=== PATIENT | female | born 2000 | race Caucasian/White ===

== ENCOUNTER 2024-02-26 11:15 | Emergency (ER) | payer BC, SELFPAY ==
[2024-02-26 11:43] VITALS: BP 168/72; PULSE 65; RESP 16; TEMP 37.1; O2SAT 100; BMI 28.8
--- NOTE | 2024-02-26 11:47 | DI.RAD.S_ITS ---
PROCEDURE: XR FOOT RT MIN 3V INDICATIONS: fall TECHNIQUE: 3 views of the foot were acquired. COMPARISON: [facility], CR, XR ANKLE RT MIN 3V, 02/26/2024, 12:00. FINDINGS: Bones: Anterior calcaneal compression. Soft tissues: No tibiotalar joint effusion. Achilles tendon appears normal. IMPRESSION: Anterior calcaneal compression highly suggestive of fracture. Dictated by: Gloria Keating M.D. on 02/26/2024 at 12:45 Approved by: Gloria Keating M.D. on 02/26/2024 at 12:46
--- NOTE | 2024-02-26 11:47 | DI.RAD.S_ITS ---
PROCEDURE: XR ELBOW RT MIN 3V INDICATIONS: fall TECHNIQUE: 3 views of the elbow were acquired. COMPARISON: None. FINDINGS: Bones: No fractures or dislocations. No suspicious bony lesions. Soft tissues: Mild elbow joint effusion. No suspicious soft tissue calcifications. IMPRESSION: No visualized acute fracture or dislocation. However, if clinical concern and/or pain persist, short interval imaging followup in 7-10 days is recommended, as occult injury cannot be definitively excluded. Dictated by: Gloria Keating M.D. on 02/26/2024 at 12:48 Approved by: Gloria Keating M.D. on 02/26/2024 at 12:53
--- NOTE | 2024-02-26 11:47 | DI.RAD.S_ITS ---
PROCEDURE: XR KNEE RT 3V INDICATIONS: fall TECHNIQUE: 3 views of the knee were acquired. COMPARISON: None. FINDINGS: Bones: No fractures or dislocations. No suspicious bony lesions. Soft tissues: No joint effusion. No suspicious soft tissue calcifications. IMPRESSION: No visualized acute fracture or dislocation. However, if clinical concern and/or pain persist, short interval imaging followup in 7-10 days is recommended, as occult injury cannot be definitively excluded. Dictated by: Gloria Keating M.D. on 02/26/2024 at 12:46 Approved by: Gloria Keating M.D. on 02/26/2024 at 12:46
--- NOTE | 2024-02-26 11:47 | DI.RAD.S_ITS ---
PROCEDURE: XR ANKLE RT MIN 3V INDICATIONS: fall TECHNIQUE: 3 views of the ankle were acquired. COMPARISON: [facility], , XR FOOT RT MIN 3V, 02/26/2024, 12:00. FINDINGS: Bones: Anterior calcaneus demonstrates appearance of compression.. Ankle mortise is normally aligned. No suspicious bony lesions. Soft tissues: No tibiotalar joint effusion. Achilles tendon appears normal. IMPRESSION: Anterior calcaneal compression highly suggestive of fracture. Dictated by: Gloria Keating M.D. on 02/26/2024 at 12:44 Approved by: Gloria Keating M.D. on 02/26/2024 at 12:45
--- NOTE | 2024-02-26 11:47 | DI.RAD.S_ITS ---
PROCEDURE: XR WRIST RT MIN 3V INDICATIONS: fall TECHNIQUE: 4 views of the wrist were acquired. COMPARISON: None. FINDINGS: Bones: No fractures or dislocations. No suspicious bony lesions. Soft tissues: No suspicious soft tissue calcifications. IMPRESSION: No visualized acute fracture or dislocation. However, if clinical concern and/or pain persist, short interval imaging followup in 7-10 days is recommended, as occult injury cannot be definitively excluded. Dictated by: Gloria Keating M.D. on 02/26/2024 at 12:46 Approved by: Gloria Keating M.D. on 02/26/2024 at 12:48
--- NOTE | 2024-02-26 12:26 | ED.FALL ---
HPI - Fall General Chief Complaint: Fall Stated Complaint: fall, knee/arm/ head injury r side Time Seen by Provider: 02/26/24 12:25 Source: patient Mode of arrival: Ambulatory History of Present Illness HPI Narrative: Patient brought here by friend. Complaints of head pain, right elbow right knee right ankle right great toe pain. [place] and [place] her balance and fell back into the right. Did hit her head. No loss of consciousness but she felt nauseous and dizzy and clammy after the injury. She did stay awake. She has history of Marfan's. Denies does not want a test. Right shoulder 2 fingers exposed. Left knee to toes exposed. There is no midline tenderness or step-off of the cervicothoracic spine or lumbar spine. Patient was able to walk herself ambulate from waiting room to her room in fast track Related Data Allergies Allergy/AdvReac Type Severity Reaction Status Date / Time diphenhydramine Allergy Anaphylaxis Verified 02/26/24 11:43 [From Benadryl] morphine AdvReac Vomiting Verified 02/26/24 11:43 Review of Systems Review of Systems Narrative: GENERAL: negative chills, fatigue, malaise, fever, positive sweats. HEENT: negative sinus pain, ear pain, sore throat RESPIRATORY: negative dyspnea, cough CARDIOVASCULAR: negative chest pain, palpitations GASTROINTESTINAL: Positive nausea, negative vomiting, abdominal pain : negative dysuria, frequency, hematuria MUSCULOSKELETAL: Positive muscle or bony pain SKIN: negative rash, skin lesions NEUROLOGIC: negative weakness, numbness, negative headache Patient History Social History Smoking Status: Never smoker Smoking Status: Never smoker Substance Use Type: does not use Exam Narrative Exam Narrative: GENERAL: in no distress, not toxic not dyspneic HEAD: Normocephalic. Mild tenderness to the mid occiput of the scalp. No crepitus or step-off. EYES: Pupils equal round EOMI ENT: Mucous membranes moist. NECK: Trachea midline. No midline tenderness or step-off of the cervical spine CARDIOVASCULAR: Regular rate and rhythm RESPIRATORY: Clear to auscultation. Breath sounds equal bilaterally. No wheezes, rales, or rhonchi. GASTROINTESTINAL: Abdomen soft, non-tender EXTREMITIES: No gross deformities. Examination right upper extremity. Shoulder 2 fingers exposed. Nontender shoulder and wrist. Able to raise hand above her head without any shoulder pain. Full flexion-extension of the wrist without difficulty, no gross deformity. Hand is warm soft and pink. 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 Light touch intact to fingers and thumb. Elbow is diffusely tender at the antecubital fossa as well as olecranon. No gross deformity. Patient able to nearly fully extend. Prefers to keep it flexed at the elbow. Able to supinate at the forearm but limited pronation. Examination of the right hip nontender. Examination of the right knee there is anterior diffuse edema/slight bruising more at medial aspect. Able to stand and bear weight. However slight antalgic gait but no foot drop. No pain or laxity of the right knee with anterior posterior medial lateral and rotational stress of the right leg. Examination of the right foot and ankle, nontender ankle. Able to flex and extend without difficulty. No gross deformity. There is mild tenderness to the 1st toe but no gross deformity. Tender at the 1st MTP joint. Foot is warm soft and pink with strong pedal pulse and light touch intact to foot and toes. Left upper extremity and left lower extremity nontender. BACK: No flank tenderness. NEURO: AOx4. SKIN: Warm and dry PSYCH: Not anxious, is cooperative Initial Vital Signs Initial Vital Signs: Vital Signs Temperature 98.7 F 02/26/24 11:43 Pulse Rate 65 02/26/24 11:43 Respiratory Rate 16 02/26/24 11:43 Blood Pressure 168/72 H 02/26/24 11:43 Pulse Oximetry 100 02/26/24 11:43 Oxygen Delivery Method Room Air 02/26/24 11:43 Procedures Orthopedic Splinting/Casting Injury #1: Time of procedure: 13:54 Side: right Lower Extremity Injury Location: foot Lower Extremity Immobilizer: boot orthosis (Walking boot) Post splinting neuro exam: no change Post splinting vascular exam: no change Placed by: Nursing Course Orders Ordered: ED Orders 02/26/24 11:47 XR ankle RT min 3V Stat XR elbow RT min 3V Stat XR foot RT min 3V Stat XR knee RT 3V Stat XR wrist RT min 3V Stat 02/26/24 12:25 CT head/brain wo con Stat Discontinued Medications Ibuprofen (Ibuprofen 400 Mg Tablet) 800 mg PO NOW ONE Stop: 02/26/24 12:29 Last Admin: 02/26/24 13:03 Dose: 800 mg Documented By: PRIYA Vital Signs Vital signs: Vital Signs - 8 hr 02/26/24 11:43 02/26/24 14:04 Temperature 98.7 F Pulse Rate 65 61 Respiratory Rate 16 16 Blood Pressure 168/72 H 130/61 Pulse Oximetry 100 100 Oxygen Delivery Method Room Air Room Air MDM - Fall Imaging Data CT scan - head: Radiologist's Impression: [address] [address] [address] Scan Report Signed Patient: Jackie Steiner MR#: [id number] : 2000 Acct:[id number] Age/Sex: 23 / F Date of Service: 02/26/24 Loc: ED Accession Number: [id number] Procedure: CT head/brain wo con Ordering Provider: Eladio Sanchez MD PROCEDURE: CT HEAD/BRAIN WO CON INDICATIONS: Fall/injury/posterior head pain TECHNIQUE: Noncontrast 4.5 mm thick angled axial sections acquired from the foramen magnum to the vertex, with coronal and sagittal reformats. For radiation dose reduction, the following was used: automated exposure control, adjustment of mA and/or kV according to patient size. COMPARISON: None. FINDINGS: Image quality: Mild streak artifact can be seen through the skull base. CSF spaces: Basal cisterns are patent. No extra-axial fluid collections. Ventricles are normal in size and shape. Brain: No midline shift. No intracranial masses or hemorrhage. Ladd-white matter interface is normal. Skull and face: Calvarium and visualized facial bones are intact, without suspicious lesions. Sinuses: Visualized sinuses and mastoids are clear. IMPRESSION: No acute intracranial hemorrhage is seen. No acute intracranial pathology. Dictated by: Catracho Bridges M.D. on 02/26/2024 at 12:11 Approved by: Catracho Bridges M.D. on 02/26/2024 at 12:11 Extremity x-ray #1: Radiologist's Impression: [address] [address] XRay Report Signed Patient: Jackie Steiner MR#: [id number] : 2000 Acct:[id number] Age/Sex: 23 / F Date of Service: 02/26/24 Loc: ED Accession Number: [id number] Procedure: XR wrist RT min 3V Ordering Provider: Eladio Sanchez MD PROCEDURE: XR WRIST RT MIN 3V INDICATIONS: fall TECHNIQUE: 4 views of the wrist were acquired. COMPARISON: None. FINDINGS: Bones: No fractures or dislocations. No suspicious bony lesions. Soft tissues: No suspicious soft tissue calcifications. IMPRESSION: No visualized acute fracture or dislocation. However, if clinical concern and/or pain persist, short interval imaging followup in 7-10 days is recommended, as occult injury cannot be definitively excluded. Dictated by: Gloria Keating M.D. on 02/26/2024 at 12:46 Approved by: Gloria Keating M.D. on 02/26/2024 at 12:48 Extremity x-ray #2: Radiologist's Impression: [address] [address] XRay Report Signed Patient: Jackie Steiner MR#: [id number] : 2000 Acct:[id number] Age/Sex: 23 / F Date of Service: 02/26/24 Loc: ED Accession Number: [id number] Procedure: XR knee RT 3V Ordering Provider: Eladio Sanchez MD PROCEDURE: XR KNEE RT 3V INDICATIONS: fall TECHNIQUE: 3 views of the knee were acquired. COMPARISON: None. FINDINGS: Bones: No fractures or dislocations. No suspicious bony lesions. Soft tissues: No joint effusion. No suspicious soft tissue calcifications. IMPRESSION: No visualized acute fracture or dislocation. However, if clinical concern and/or pain persist, short interval imaging followup in 7-10 days is recommended, as occult injury cannot be definitively excluded. Dictated by: Gloria Keating M.D. on 02/26/2024 at 12:46 Approved by: Gloria Keating M.D. on 02/26/2024 at 12:46 Extremity x-ray #3: Radiologist's Impression: [address] [address] XRay Report Signed Patient: Jackie Steiner MR#: [id number] : 2000 Acct:[id number] Age/Sex: 23 / F Date of Service: 06/03/24 Loc: ED Accession Number: [id number] Procedure: XR foot RT min 3V Ordering Provider: Eladio Sanchez MD PROCEDURE: XR FOOT RT MIN 3V INDICATIONS: fall TECHNIQUE: 3 views of the foot were acquired. COMPARISON: [facility], , XR ANKLE RT MIN 3V, 02/26/2024, 12:00. FINDINGS: Bones: Anterior calcaneal compression. Soft tissues: No tibiotalar joint effusion. Achilles tendon appears normal. IMPRESSION: Anterior calcaneal compression highly suggestive of fracture. Dictated by: Gloria Keating M.D. on 02/26/2024 at 12:45 Approved by: Gloria Keating M.D. on 02/26/2024 at 12:46 X-ray elbow: Radiologist's Impression: [address] [address] XRay Report Signed Patient: Jackie Steiner MR#: [id number] : 2000 Acct:[id number] Age/Sex: 23 / F Date of Service: 02/26/24 Loc: ED Accession Number: [id number] Procedure: XR elbow RT min 3V Ordering Provider: Eladio Sanchez MD PROCEDURE: XR ELBOW RT MIN 3V INDICATIONS: fall TECHNIQUE: 3 views of the elbow were acquired. COMPARISON: None. FINDINGS: Bones: No fractures or dislocations. No suspicious bony lesions. Soft tissues: Mild elbow joint effusion. No suspicious soft tissue calcifications. IMPRESSION: No visualized acute fracture or dislocation. However, if clinical concern and/or pain persist, short interval imaging followup in 7-10 days is recommended, as occult injury cannot be definitively excluded. Dictated by: Gloria Keating M.D. on 02/26/2024 at 12:48 Approved by: Gloria Keating M.D. on 02/26/2024 at 12:53 X-ray ankle: Radiologist's Impression: [address] [address] XRay Report Signed Patient: Jackie Steiner MR#: [id number] : 2000 Acct:[id number] Age/Sex: 23 / F Date of Service: 02/26/24 Loc: ED Accession Number: [id number] Procedure: XR ankle RT min 3V Ordering Provider: Eladio Sanchez MD PROCEDURE: XR ANKLE RT MIN 3V INDICATIONS: fall TECHNIQUE: 3 views of the ankle were acquired. COMPARISON: [facility], CR, XR FOOT RT MIN 3V, 02/26/2024, 12:00. FINDINGS: Bones: Anterior calcaneus demonstrates appearance of compression.. Ankle mortise is normally aligned. No suspicious bony lesions. Soft tissues: No tibiotalar joint effusion. Achilles tendon appears normal. IMPRESSION: Anterior calcaneal compression highly suggestive of fracture. Dictated by: Gloria Keating M.D. on 02/26/2024 at 12:44 Approved by: Gloria Keating M.D. on 02/26/2024 at 12:45 [facility] Narrative Medical decision making narrative: Patient brought here by friend. Complaints of head pain, right elbow right knee right ankle right great toe pain. [place] and lost her balance and fell back into the right. Did hit her head. No loss of consciousness but she felt nauseous and dizzy and clammy after the injury. She did stay awake. She has history of Marfan's. Denies does not want a test. Right shoulder 2 fingers exposed. Left knee to toes exposed. There is no midline tenderness or step-off of the cervicothoracic spine or lumbar spine. Patient was able to walk herself ambulate from waiting room to her room in fast track After history and exam CT head x-ray right elbow/knee/ankle/foot/wrist, ice pack, ibuprofen MDM Medical records reviewed: No recent visits for this complaint Differential considered: Includes but not limited to concussion head please call fracture elbow/knee/wrist/foot/ankle/toe-fracture strain sprain contusion Lab Test results independently reviewed as above. Pertinent findings: None indicated Imaging studies independently reviewed: CT head x-ray right elbow wrist knee no acute ankle and foot anterior calcaneal compression highly suggestive of fracture Consultations: Referral for Orthopedics provided, 1:53 p.m.. I did speak with Dr. Wright, orthopedics. I did squeeze on the heel/calcaneus. There is no tenderness. It would be appropriate to place patient in a walking boot and follow up in the office. No CT indicated at this time. Treatments: Ibuprofen Re-evaluations: 1:55 p.m.. Reviewed with patient results. She agrees with treatment plan. Pain is controlled at this time. Sling for the right elbow and walking boot for the right foot. Return precautions reviewed. She desires discharge home. She already has time off work for the next few days. Reviewed with her ibuprofen Tylenol for pain. Discussion: Appropriate for discharge home. Clinically and exam calcaneus is not tender. Ankles nontender. Walking boot appropriate for follow up. Return precautions reviewed. Orthopedic referral provided. Pain is controlled. Sling provided. Patient desires discharge home Diagnosis: Scalp contusion right elbow strain right knee strain right foot strain Discharge Plan Departure Patient Disposition: Home Clinical Impression: Contusion of scalp Qualifiers: Encounter type: initial encounter Qualified Code(s): S00.03XA - Contusion of scalp, initial encounter Strain of elbow, right Qualifiers: Encounter type: initial encounter Qualified Code(s): S46.911A - Strain of unspecified muscle, fascia and tendon at shoulder and upper arm level, right arm, initial encounter Strain of right knee Qualifiers: Encounter type: initial encounter Qualified Code(s): S86.911A - Strain of unspecified muscle(s) and tendon(s) at lower leg level, right leg, initial encounter Right foot strain Qualifiers: Encounter type: initial encounter Qualified Code(s): S96.911A - Strain of unspecified muscle and tendon at ankle and foot level, right foot, initial encounter Right ankle strain Qualifiers: Encounter type: initial encounter Qualified Code(s): S96.911A - Strain of unspecified muscle and tendon at ankle and foot level, right foot, initial encounter Activity Restrictions/Additional Instructions: Please call provided orthopedic office today for office re-evaluation in a week. Walking boot has been provided for you until office appointment time. Return if worse if any questions concerns. May need repeat imaging of your injured areas if not improving 7-10 days. May continue ibuprofen for pain. Use sling Referrals: Jenn Castillo MD [Physician] - Stand Alone Forms: Patient Portal/API, Work Release Note
[2024-02-26] MEDS: IBUPROFEN 400 MG TABLET 800 MG PO (13:03)
[2024-02-26 14:04] VITALS: BP 130/61; PULSE 61; RESP 16; O2SAT 100
== END 2024-02-26 14:05 | disposition home or self-care (01) ==
PROVIDERS: Emergency Provider Emergency Medicine
DX: S00.03XA Contusion of scalp, initial encounter (principal); S46.911A Strain of unspecified muscle, fascia and tendon at shoulder and upper arm level, right arm, initial encounter; S86.911A Strain of unspecified muscle(s) and tendon(s) at lower leg level, right leg, initial encounter; S96.911A Strain of unspecified muscle and tendon at ankle and foot level, right foot, initial encounter; W01.0XXA Fall on same level from slipping, tripping and stumbling without subsequent striking against object, initial encounter; Y93.01 Activity, walking, marching and hiking; Y92.832 Beach as the place of occurrence of the external cause
CPT/HCPCS: 70450; 73080; 73110; 73562; 73610; 73630; 99283; 99284